=== PATIENT | male | born 1990 | race Asian ===

== ENCOUNTER 2017-01-06 12:29 | Emergency (ER) | payer OTHER ==
[~2017-01-06] VITALS: Ht 167.6 cm; Wt 54.9 kg
[2017-01-06 14:56] LABS: BASOPHIL % 0.6 % (0-2); PLATELET COUNT 317 x10^3mcL (130-400); RED CELL DISTRIBUTION WIDTH 13.4 % (11.5-14.5)
[2017-01-06 15:03] LABS: CALCIUM 9.9 mg/dL (8.5-10.1); CARBON DIOXIDE 32.7 mmol/L (21-32); CHLORIDE SERUM 99 mmol/L (98-107); CREATININE SERUM 0.8 mg/dL (0.7-1.3); GFR1 > 60 mL/min; GLUCOSE SERUM 104 mg/dL (74-106); POTASSIUM SERUM 4.3 mmol/L (3.5-5.1); SODIUM SERUM 139 mmol/L (136-145)
[2017-01-06 15:08] LABS: ALBUMIN 4.5 g/dL (3.4-5.0); ALKALINE PHOSPHATASE 56 U/L (46-116); ALT/SGPT 41 U/L (16-63); AST/SGOT 32 U/L (15-37); BILIRUBIN TOTAL 0.6 mg/dL (0.20-1.00)
[2017-01-06 15:24] LABS: microscopic required? YES; urine erythrocyte 3+ (NEGATIVE)
[2017-01-06 16:06] VITALS: BP 138/87
== END 2017-01-06 16:06 | disposition home or self-care (01) ==
LOC: ED 12:29
PROVIDERS: Specialist
DX: R31.9 Hematuria, unspecified (principal)
CPT/HCPCS: 36415

== ENCOUNTER 2017-01-06 19:16 | Emergency (ER) | payer OTHER ==
[2017-01-06 19:37] VITALS: BP 131/60
== END 2017-01-06 20:36 | disposition left against medical advice (07) ==
LOC: ED 19:16
DX: R31.9 Hematuria, unspecified (principal); Z53.21 Procedure and treatment not carried out due to patient leaving prior to being seen by health care provider